=== PATIENT | female | born 1990 | race Caucasian/White ===

== ENCOUNTER 2018-03-26 20:24 | Emergency (ER) | payer MEDICAID, SELFPAY | END 2018-03-26 21:25 | disposition home or self-care (01) | LOC: MADERS 20:24 | DX: R21 Rash and other nonspecific skin eruption (principal); I10 Essential (primary) hypertension; F90.9 Attention-deficit hyperactivity disorder, unspecified type; F17.210 Nicotine dependence, cigarettes, uncomplicated; Z79.899 Other long term (current) drug therapy; Z79.82 Long term (current) use of aspirin | CPT/HCPCS: 99281 ==

== ENCOUNTER 2019-04-06 13:42 | Emergency (ER) | payer OTHER, SELFPAY ==
[2019-04-06] MEDS ORDERED: predniSONE 20 MG TAB ONE (14:19)
== END 2019-04-06 14:23 | disposition home or self-care (01) ==
LOC: MADERS 13:42
DX: J02.8 Acute pharyngitis due to other specified organisms (principal); I10 Essential (primary) hypertension; F90.9 Attention-deficit hyperactivity disorder, unspecified type; F17.210 Nicotine dependence, cigarettes, uncomplicated; Z79.82 Long term (current) use of aspirin; Z79.899 Other long term (current) drug therapy
CPT/HCPCS: 87081; 87430; 87804; 99283; J7512